=== PATIENT | female | born 1965 | race Caucasian/White ===

== ENCOUNTER 2023-03-17 17:59 | Emergency (ER) | payer SELFPAY ==
[~2023-03-17] VITALS: Ht 165.1 cm; Wt 72.6 kg
[2023-03-17] MEDS ORDERED: ONDANSETRON ODT 4 MG TAB.RAPDIS SL ONE (19:00)
[2023-03-17] MEDS ORDERED: HYDROMORPHONE 1 MG/1 ML DISP.SYRIN IM ONE ×2 (19:00→20:00)
[2023-03-17] MEDS ORDERED: ONDANSETRON ODT 4 MG TAB.RAPDIS ONE (19:01)
[2023-03-17] MEDS ORDERED: HYDROMORPHONE 1 MG/1 ML DISP.SYRIN ONE ×2 (19:02→19:58)
[2023-03-17] MEDS ORDERED: HYDR-3980 PO (20:01)
[2023-03-17] MEDS ORDERED: ONDA4TAB5 PO (20:01)
[2023-03-17] MEDS ORDERED: OXYC-133 PO (21:24)
[2023-03-17 21:35] VITALS: BP 135/80; TEMP 98.5; O2SAT 99
== END 2023-03-17 21:35 | disposition home or self-care (01) ==
LOC: ER 18:01
DX: S83.8X1A Sprain of other specified parts of right knee, initial encounter (principal); Z88.1 Allergy status to other antibiotic agents; W18.39XA Other fall on same level, initial encounter; Y93.89 Activity, other specified; Y92.89 Other specified places as the place of occurrence of the external cause; Y99.8 Other external cause status
CPT/HCPCS: 29505; 73564; 96372; 99284; J1170; A4606; A4663; Q0162